=== PATIENT | male | born 1940 | race Caucasian/White ===

== ENCOUNTER 2020-11-30 01:15 | Inpatient (IN) | payer OTHER, MEDICARE ==
[2020-11-30] VITALS (38 sets, daily range): BP systolic 76–203; BP diastolic 40–148
[~2020-11-30] VITALS: Ht 188 cm; Wt 92.5 kg
[~2020-11-30 01:15] MED LIST: CARDIZEM CD120 MG PO; COZAAR 50 MG TA50 M1 PO; ELIQUIS5 MG PO; LISINOPRIL10 MG PO; REQUIP XL2 MG PO
[2020-11-30] MEDS ORDERED: ASA81BEC PO (01:35)
[2020-11-30] MEDS ORDERED: KLOR-CON M2020 MEQ PO (01:36)
[2020-11-30 02:03] LABS: ABSOLUTE BASOPHILS 0.1 thou/uL (0.0-0.2); ABSOLUTE EOSINOPHILS 0.2 thou/uL (0.0-0.7); ABSOLUTE LYMPHOCYTES 1.6 thou/uL (0.8-5.3); ABSOLUTE MONOCYTES 0.8 thou/uL (0.0-1.2); ABSOLUTE NEUTROPHILS 6.8 thou/uL (1.6-8.1); BASOPHILS 1.2 %; EOSINOPHILS 2.1 %; HEMATOCRIT 46.7 % (42.0-52.0); HEMOGLOBIN 15.8 gm/dL (14.0-18.0); LYMPHOCYTES 16.6 %; MCHC 33.8 g/dL (28.0-37.0); MCV 100.5 fL (80.0-100.0); MONOCYTES 8.2 %; MPV 7.9 fl. (7.2-11.1); NUCLEATED RBCS 0 /100WBC; PLATELET COUNT* 161 thou/uL (150-400); POLYS 71.9 %; RBC 4.65 mil/uL (4.50-6.00); RDW-CV 13.3 % (10.5-14.5); WBC 9.5 thou/uL (4.0-11.0)
[2020-11-30 02:05] LABS: CALCIUM 9.6 mg/dL (8.5-10.1); CREATININE 1.9 mg/dL (0.6-1.3); POTASSIUM 3.9 mmol/L (3.5-5.1)
[2020-11-30 02:10] LABS: ALBUMIN 3.3 g/dL (3.4-5.0); TOTAL PROTEIN 6.1 g/dL (6.4-8.2)
[2020-11-30 02:36] LABS: APTT 25.9 Seconds (25.0-31.3); INR 1.1; PROTIME 11.7 Seconds (9.20-11.50)
[2020-11-30 04:04] LABS: URINE BILIRUBIN NEGATIVE (Negative); URINE BLOOD NEGATIVE (Negative); URINE CLARITY CLEAR; URINE COLOR YELLOW; URINE GLUCOSE-RANDOM NEGATIVE (Negative); URINE KETONES TRACE (Negative); URINE LEUKOCYTES-REFLEX NEGATIVE (Negative); URINE NITRITE-REFLEX NEGATIVE (Negative); URINE PROTEIN 1+ (Negative); URINE SPECIFIC GRAVITY 1.025 (1.005-1.030); URINE UROBILINOGEN 0.2 E.U./dl (0.2-1.0)
[2020-11-30 07:10] LABS: HEMATOCRIT 35.9 % (42.0-52.0); HEMOGLOBIN 12.1 gm/dL (14.0-18.0); MCH 33.9 pg (26.0-34.0); MCHC 33.7 g/dL (28.0-37.0); MCV 100.6 fL (80.0-100.0); MPV 7.9 fl. (7.2-11.1); RBC 3.57 mil/uL (4.50-6.00); RDW-CV 13.5 % (10.5-14.5); WBC 15.8 thou/uL (4.0-11.0)
[2020-11-30 07:30] LABS: CREATININE 1.8 mg/dL (0.6-1.3); POTASSIUM 4.4 mmol/L (3.5-5.1)
[2020-11-30 07:33] LABS: CALCIUM 7.5 mg/dL (8.5-10.1)
--- NOTE | 2020-11-30 09:36 | EKG ---
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 MORALESB: 1940 Requested By: Saray Ochoa Order Number: [id number] MD: Micheal Kahn Measurements Intervals [place] Rate: 73 P: NE: QRS: -1 QRSD: 94 T: 13 QT: 404 QTc: 446 Interpretive Statements Atrial fibrillation Probable septal infarct, old Compared to ECG 04/11/2010 14:01:58 Myocardial infarct finding now present Sinus rhythm no longer present Electronically Signed On 11-30-2020 9:36:38 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
[2020-11-30 13:50] LABS: HEMATOCRIT 32.5 % (42.0-52.0); HEMOGLOBIN 10.8 gm/dL (14.0-18.0)
[2020-11-30 19:34] LABS: HEMATOCRIT 30.3 % (42.0-52.0); MCH 32.9 pg (26.0-34.0); MCV 99.7 fL (80.0-100.0); MPV 8.5 fl. (7.2-11.1); NUCLEATED RBCS 0 /100WBC; PLATELET COUNT* 135 thou/uL (150-400); RBC 3.04 mil/uL (4.50-6.00); WBC 25.5 thou/uL (4.0-11.0)
[2020-11-30 19:57] LABS: ABSOLUTE LYMPHOCYTES 0.5 thou/uL (0.8-5.3); ABSOLUTE MONOCYTES 0.8 thou/uL (0.0-1.2); ABSOLUTE NEUTROPHILS 24.2 thou/uL (1.6-8.1)
[2020-11-30 19:58] LABS: PLATELET ESTIMATE DECREASED
[2020-11-30 20:02] LABS: CALCIUM 7.8 mg/dL (8.5-10.1); POTASSIUM 5.1 mmol/L (3.5-5.1)
[2020-12-01] VITALS (18 sets, daily range): BP systolic 93–139; BP diastolic 45–77
[2020-12-01 04:32] LABS: MCHC 33.2 g/dL (28.0-37.0); MCV 99.6 fL (80.0-100.0); MPV 8.6 fl. (7.2-11.1); RBC 2.41 mil/uL (4.50-6.00); RDW-CV 16.1 % (10.5-14.5)
[2020-12-01 04:49] LABS: CALCIUM 7.7 mg/dL (8.5-10.1); CREATININE 1.8 mg/dL (0.6-1.3); MAGNESIUM 1.9 mg/dL (1.8-2.4); POTASSIUM 4.8 mmol/L (3.5-5.1)
[2020-12-01 14:10] LABS: ABSOLUTE BASOPHILS 0.1 thou/uL (0.0-0.2); ABSOLUTE EOSINOPHILS 0.1 thou/uL (0.0-0.7); ABSOLUTE LYMPHOCYTES 0.9 thou/uL (0.8-5.3); ABSOLUTE MONOCYTES 1.4 thou/uL (0.0-1.2); ABSOLUTE NEUTROPHILS 14.5 thou/uL (1.6-8.1); BASOPHILS 0.4 %; EOSINOPHILS 0.5 %; HEMATOCRIT 22.5 % (42.0-52.0); HEMOGLOBIN 7.6 gm/dL (14.0-18.0); LYMPHOCYTES 5.2 %; MCH 33.3 pg (26.0-34.0); MCHC 33.9 g/dL (28.0-37.0); MCV 98.2 fL (80.0-100.0); MONOCYTES 8.3 %; MPV 7.9 fl. (7.2-11.1); NUCLEATED RBCS 0 /100WBC; PLATELET COUNT* 116 thou/uL (150-400); POLYS 85.6 %; RBC 2.29 mil/uL (4.50-6.00); RDW-CV 15.5 % (10.5-14.5); WBC 16.9 thou/uL (4.0-11.0)
[2020-12-02 03:59] VITALS: BP 135/77
[2020-12-02 04:22] LABS: HEMATOCRIT 21.8 % (42.0-52.0); HEMOGLOBIN 7.4 gm/dL (14.0-18.0); MCV 97.2 fL (80.0-100.0); MPV 8.4 fl. (7.2-11.1); RBC 2.24 mil/uL (4.50-6.00); RDW-CV 15.7 % (10.5-14.5); WBC 13.9 thou/uL (4.0-11.0)
[2020-12-02 04:41] LABS: CALCIUM 8.1 mg/dL (8.5-10.1); CREATININE 1.4 mg/dL (0.6-1.3); MAGNESIUM 1.9 mg/dL (1.8-2.4)
[2020-12-02 04:50] LABS: POTASSIUM 3.7 mmol/L (3.5-5.1)
[2020-12-02 11:43] VITALS: BP 100/52
--- NOTE | 2020-12-02 12:05 | CON ---
[address] [address] CONSULTATION Name: SUDHIR SNIDER Room: [address] IN M.R.#: [id number] Admission: 11/30/20 Attend Phys: Paddy Saldana MD Discharge: Date of : 38 Report #: [id number] THIS REPORT FOR: cc: FAM - No family physician/PCP FAM - No family physician/PCP ~ Isis Greenberg MD [facility] CARDIOLOGY CONSULTATION HISTORY OF PRESENT ILLNESS: I was asked by Dr. Saldana to see this 80-year-old white male in cardiology consultation for evaluation and treatment of atrial fibrillation with rapid ventricular response. This man has known chronic atrial fibrillation. He underwent colon polyp removal on Thursday. I believe he had 15 polyps removed. Subsequently, he had a fairly impressive colonic bleed, probably from the cecum based on the radionuclide study. He does have history of atrial fibrillation. With the bleeding he developed atrial fibrillation with rapid ventricular response. Subsequently, he was given IV amiodarone as well as IV digitalis and Levophed. He was clearly in hypovolemic shock when the event occurred. He has had volume replaced and blood transfused and he is much better. I believe his hemoglobin this morning was 10. He no longer seems to have any active bleeding. He is no longer requiring Levophed. His rate was controlled with amiodarone plus the addition of digoxin. He is now just on maintenance amiodarone at 0.5 mg per hour IV. Normally, I believe, this man is on diltiazem at home. I believe that he was on 120 mg of the extended release. He also is on losartan 50 mg daily as he has essential hypertension. He was on aspirin 81 mg daily. He was on potassium 20 mEq daily. Today he is feeling fairly well and is sitting up in a chair. He has no complaints today. PAST MEDICAL HISTORY: As described above. Additionally, he has had a left nephrectomy. ALLERGIES: He has no known allergies. SOCIAL HISTORY: Does not smoke, drink or use illegal drugs. FAMILY HISTORY: Unremarkable. REVIEW OF SYSTEMS: Positive only for blood in his urine and renal cell carcinoma in the past, wearing glasses, loss of vision, decreased hearing and bleeding from the nose as well as blood in the stool, all that is new. Otherwise, he is negative for some 45 different complaints in 14 different system categories including central nervous system, general, respiratory, cardiovascular, endocrine, gastrointestinal, genitourinary, hematologic, lymphatic, allergic, immunologic, psychiatric, musculoskeletal, skin, eyes, ears, nose, mouth, and throat. Please see review of system form for details and negatives [place] [address] CONSULTATION Name: SUDHIR SNIDER Room: [address] IN .R.#: [id number] Admission: 11/30/20 Attend Phys: Paddy Saldana MD Discharge: Date of : 38 Report #: [id number] He is . 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 He does have a daughter who had a myocardial infarction. PHYSICAL EXAMINATION: GENERAL: He presents as a well-developed, well-nourished white male in no acute distress. VITAL SIGNS: Pulse was 109 and irregular, blood pressure 119/50, respirations 16 and regular. He is clinically afebrile. HEENT: His head was atraumatic. Eyes clear. NECK: Supple. There is no jugular venous distention or hepatojugular reflux. Thyroid is not enlarged. There is no adenopathy. SKIN: Warm and dry. Mucous membranes are moist. LUNGS: Clear to auscultation and percussion. HEART: Revealed normal first and second heart sound. There is a soft S4. There is no S4. There is no S3. There are no murmurs, rubs, thrills, heaves or gallops. PMI is nondisplaced. ABDOMEN: Soft, flat and nontender. No palpable masses, no organomegaly. EXTREMITIES: Reveal no cyanosis, clubbing or edema. NEUROLOGIC: The patient mentated normally, talked normally, moved all extremities normally. LABORATORY DATA: Initial EKG done before the colonoscopy, I believe as this EKG is from 11/30/2020 which shows atrial fibrillation. There are very small complexes in V1 and V2, otherwise there are also small complexes in III and aVF, otherwise it is a normal EKG. IMPRESSION: 1. Atrial fibrillation with a rapid ventricular response that has now been controlled. 2. Chronic atrial fibrillation. 3. Gastrointestinal bleed secondary to multiple polypectomies. 4. Colon polyps. 5. History of left nephrectomy secondary to renal cell carcinoma. RECOMMENDATION: Continue current therapy. He has gotten 0.75 mg of digoxin, I will not continue that. I would continue him on the amiodarone in the short run. I probably tomorrow if his blood pressure remains stable switch him over to diltiazem. I would get him back on his regular dose. [address] [address] CONSULTATION Name: ESTEVAN SNIDERMORENA Gómez Room: [address] IN M.R.#: [id number] Admission: 11/30/20 Attend Phys: Paddy Saldana MD Discharge: Date of : 38 Report #: [id number] Thank you very much for asking me to see the patient. If there are any questions, please feel free to contact me. <ELECTRONICALLY SIGNED> By: Isis Greenberg MD, FAC 12/02/20 1205 [id number]. Eliazar Greenberg MD, [facility] /nt
[2020-12-02 12:32] LABS: HEMATOCRIT 24.3 % (42.0-52.0); HEMOGLOBIN 8.2 gm/dL (14.0-18.0)
[2020-12-02 16:13] VITALS: BP 127/58
[2020-12-02 18:02] LABS: HEMOGLOBIN 7.7 gm/dL (14.0-18.0)
[2020-12-02 20:46] VITALS: BP 122/62
[2020-12-03 00:10] VITALS: BP 129/57
[2020-12-03 04:24] LABS: ABSOLUTE EOSINOPHILS 0.2 thou/uL (0.0-0.7); ABSOLUTE MONOCYTES 1.3 thou/uL (0.0-1.2); ABSOLUTE NEUTROPHILS 8.9 thou/uL (1.6-8.1); BASOPHILS 0.3 %; EOSINOPHILS 1.7 %; MCH 33.6 pg (26.0-34.0); MCHC 34.7 g/dL (28.0-37.0); MCV 96.8 fL (80.0-100.0); MONOCYTES 11.7 %; MPV 8.4 fl. (7.2-11.1); NUCLEATED RBCS 0 /100WBC; PLATELET COUNT* 115 thou/uL (150-400); POLYS 77.3 %; RBC 2.02 mil/uL (4.50-6.00); RDW-CV 15.3 % (10.5-14.5); WBC 11.5 thou/uL (4.0-11.0)
[2020-12-03 04:47] VITALS: BP 151/71
[2020-12-03 04:49] LABS: ALBUMIN 2.3 g/dL (3.4-5.0); CALCIUM 7.9 mg/dL (8.5-10.1); CREATININE 1.3 mg/dL (0.6-1.3); POTASSIUM 3.5 mmol/L (3.5-5.1); TOTAL BILIRUBIN 0.5 mg/dL (<0.1-1.0); TOTAL PROTEIN 4.6 g/dL (6.4-8.2)
[2020-12-03 05:08] LABS: HEMATOCRIT 19.5 % (42.0-52.0); HEMOGLOBIN 6.8 gm/dL (14.0-18.0)
[2020-12-03 08:18] VITALS: BP 133/82; BP 138/71; BP 140/70
[2020-12-03 08:30] VITALS: BP 129/81
[2020-12-03 12:09] LABS: HEMATOCRIT 25.7 % (42.0-52.0); HEMOGLOBIN 8.8 gm/dL (14.0-18.0)
[2020-12-03 13:50] VITALS: BP 136/79
[2020-12-03 15:56] LABS: HEMATOCRIT 25.9 % (42.0-52.0)
[2020-12-03 16:24] VITALS: BP 141/59
[2020-12-04 00:11] VITALS: BP 135/86
[2020-12-04 03:48] VITALS: BP 114/64
[2020-12-04 04:29] LABS: HEMATOCRIT 24.4 % (42.0-52.0); HEMOGLOBIN 8.5 gm/dL (14.0-18.0); MCH 33.7 pg (26.0-34.0); MCHC 34.8 g/dL (28.0-37.0); MCV 96.8 fL (80.0-100.0); MPV 8.2 fl. (7.2-11.1); RBC 2.52 mil/uL (4.50-6.00); RDW-CV 15.2 % (10.5-14.5); WBC 10.3 thou/uL (4.0-11.0)
[2020-12-04 08:05] VITALS: BP 145/84
[2020-12-04] MEDS ORDERED: PROTONIX40 M2 PO (09:37)
[2020-12-04] MEDS ORDERED: IRON325 M1 PO (09:40)
[2020-12-04 11:33] VITALS: BP 145/84
[2020-12-04 12:38] VITALS: BP 145/84
[2020-12-04 12:39] VITALS: BP 145/84
== END 2020-12-04 13:05 | disposition home or self-care (01) | DRG 357 ==
LOC: M.ERS 01:15 → M.TBA-ER 03:23 → M.3W 05:03 → M.ICU 08:17 → M.3W 08:18 → M.ICU 08:47 → M.2W 12-01 14:38
PROVIDERS: Internal Medicine; Internal Medicine Gastroenterology; Personal Emergency Response Attendant; ADMIT Internal Medicine; ATTEND Internal Medicine
PROC: 04L63DZ Occlusion of Right Colic Artery with Intraluminal Device, Percutaneous Approach (ICD-10-PCS; principal; 2020-11-30)
PROC: 30233N1 Transfusion of Nonautologous Red Blood Cells into Peripheral Vein, Percutaneous Approach (ICD-10-PCS; principal; 2020-11-30)
PROC: B4141ZZ Fluoroscopy of Superior Mesenteric Artery using Low Osmolar Contrast (ICD-10-PCS; principal; 2020-11-30)
PROC: B4151ZZ Fluoroscopy of Inferior Mesenteric Artery using Low Osmolar Contrast (ICD-10-PCS; principal; 2020-11-30)
PROC: B41F1ZZ Fluoroscopy of Right Lower Extremity Arteries using Low Osmolar Contrast (ICD-10-PCS; principal; 2020-11-30)
DX: K62.5 Hemorrhage of anus and rectum (principal); R57.9 Shock, unspecified; D68.69 Other thrombophilia; I48.20 Chronic atrial fibrillation, unspecified; R71.0 Precipitous drop in hematocrit; N18.30 Chronic kidney disease, stage 3 unspecified; K57.90 Diverticulosis of intestine, part unspecified, without perforation or abscess without bleeding; Z20.822 Contact with and (suspected) exposure to COVID-19; Z85.528 Personal history of other malignant neoplasm of kidney; Z79.82 Long term (current) use of aspirin; Z79.899 Other long term (current) drug therapy

== ENCOUNTER → 2020-12-25 | Outpatient (CLI) | payer OTHER, MEDICARE ==
[~2020-12-25] MED LIST changes: +ASA81BEC PO; +IRON325 M1 PO; +KLOR-CON M2020 MEQ PO; +PROTONIX40 M2 PO
[2020-12-25 15:04] LABS: ABSOLUTE BASOPHILS 0.1 thou/uL (0.0-0.2); ABSOLUTE EOSINOPHILS 0.2 thou/uL (0.0-0.7); ABSOLUTE LYMPHOCYTES 0.9 thou/uL (0.8-5.3); ABSOLUTE MONOCYTES 0.8 thou/uL (0.0-1.2); ABSOLUTE NEUTROPHILS 5.4 thou/uL (1.6-8.1); BASOPHILS 1.2 %; EOSINOPHILS 2.8 %; HEMATOCRIT 38.6 % (42.0-52.0); HEMOGLOBIN 12.6 gm/dL (14.0-18.0); LYMPHOCYTES 11.9 %; MCH 31.7 pg (26.0-34.0); MCHC 32.5 g/dL (28.0-37.0); MCV 97.5 fL (80.0-100.0); MONOCYTES 10.9 %; MPV 7.2 fl. (7.2-11.1); NUCLEATED RBCS 0 /100WBC; PLATELET COUNT* 205 thou/uL (150-400); POLYS 73.2 %; RBC 3.96 mil/uL (4.50-6.00); RDW-CV 15.1 % (10.5-14.5); WBC 7.4 thou/uL (4.0-11.0)
[2020-12-25 15:18] LABS: ALBUMIN 3.4 g/dL (3.4-5.0); CALCIUM 9.2 mg/dL (8.5-10.1); CREATININE 1.7 mg/dL (0.6-1.3); POTASSIUM 4.6 mmol/L (3.5-5.1); TOTAL BILIRUBIN 0.5 mg/dL (<0.1-1.0); TOTAL PROTEIN 6.9 g/dL (6.4-8.2)
[2020-12-25 16:10] LABS: ESR (SEDRATE) 3 mm/hr (0-20)
== END ==
LOC: M.LAB 14:46
PROVIDERS: ATTEND Internal Medicine Gastroenterology
DX: R19.5 Other fecal abnormalities (principal)